=== PATIENT | female | born 1990 | race Caucasian/White ===

== ENCOUNTER 2024-11-04 19:55 | Inpatient (IN) | payer OTHER ==
[2024-11-04] MEDS ORDERED: Ibuprofen 800 MG TAB PO PRN (21:29)
[2024-11-04] MEDS ORDERED: Methylergonovine 0.2 MG/ML VIAL IM PRN (21:29)
[2024-11-04] MEDS ORDERED: Carboprost 250 MCG/ML AMP IM PRN (21:29)
[2024-11-04] MEDS ORDERED: Acetaminophen 500 MG TAB PO PRN (21:29)
[2024-11-04] MEDS ORDERED: Zolpidem Tartrate 5 MG TAB PO PRN (21:29)
[2024-11-04] MEDS ORDERED: hydrALAZINE 20 MG/ML VIAL SLOW IVP PRN (21:29)
[2024-11-04] MEDS ORDERED: Lidocaine 1% (PF) 30 ML VIAL SC PRN (21:29)
[2024-11-04] MEDS ORDERED: HYDROcodone/Acetaminophen 5/325 mg Tablet PO PRN ×2 (21:29)
[2024-11-04] MEDS ORDERED: Diphenoxylate HCl/Atropine Tablet PO PRN ×2 (21:29)
[2024-11-04] MEDS ORDERED: fentaNYL 50 mcg/mL 1 mL Vial SLOW IVP PRN (21:29)
[2024-11-04] MEDS ORDERED: Misoprostol 200 MCG TAB PR PRN (21:29)
[2024-11-04] MEDS ORDERED: Tranexamic Acid 1,000 MG/10 ML VIAL IVP PRN (21:29)
[2024-11-04] MEDS ORDERED: Oxytocin 30 units/NS 500 ML 500 ML IV SCH (21:29)
[2024-11-04 21:34] VITALS: BMI 29.7
[2024-11-04] MEDS: Lactated Ringer's 1,000 ML IV SCH (21:58)
[2024-11-04] MEDS: Misoprostol 100 MCG TAB VAG SCH (22:05)
[2024-11-04 22:34] LABS: Hematocrit 33.5 % (34.9-44.5); Hemoglobin 11.4 g/dL (12.0-15.5); Mean Corpuscular Hemoglobin 28.8 pg (27.0-33.0); Mean Corpuscular Volume 84.6 fL (81.6-98.3); Mean Platelet Volume 11.4 fL (7.4-10.4); Platelet Count 301 10x3/uL (150-450); RBC Distribution Width 15.2 % (11.5-14.5); Red Blood Cell (RBC) Count 3.96 10x6/uL (3.90-5.03); White Blood Cell (WBC) Count 12.9 10x3/uL (3.5-10.5)
[2024-11-04 23:15] LABS: HBsAg Index 0.19 S/CO (0-0.99); Hep B Surf Ag - L&D Non-Reactive S/CO (NonReactive); Syphilis Antibody Nonreactive (Nonreactive); Syphilis Antibody Index 0.06 S/CO (<1.00 Non-Reactive)
[2024-11-05] MEDS: Oxytocin 30 units/NS 500 ML 500 ML IV SCH (06:00)
[2024-11-05] MEDS: fentaNYL/Ropivacaine Epidural 100 ML ONE (07:36)
[2024-11-05] MEDS ORDERED: Promethazine HCl 25 MG/ML VIAL IM PRN (07:41)
[2024-11-05] MEDS ORDERED: Moisturizing Cream (Eucerin) 113 GM JAR TOP PRN (07:41)
[2024-11-05] MEDS ORDERED: Lactated Ringer's 500 ML IV PRN (07:41)
[2024-11-05] MEDS ORDERED: Ondansetron PF 4 MG/2 ML Vial IVP PRN (07:41)
[2024-11-05] MEDS ORDERED: ePHEDrine Sulfate 50 MG/10 ML VIAL SLOW IVP PRN (07:41)
[2024-11-05] MEDS ORDERED: Acetaminophen 325 MG TAB PO PRN (07:41)
[2024-11-05] MEDS ORDERED: Naloxone HCl 0.4 mg/ml Vial IVP PRN ×2 (07:41)
[2024-11-05] MEDS ORDERED: diphenhydrAMINE 50 MG/ML VIAL IVP PRN (07:41)
[2024-11-05] MEDS ORDERED: Communication Order-Pharmacy FS SCH (07:45)
[2024-11-05] MEDS ORDERED: fentaNYL 2 mcg/Ropivacaine 0.2% Epidural 100 ML CADD EPIDURAL SCH (07:45)
[2024-11-05] MEDS: Ondansetron PF 4 MG/2 ML Vial IVP PRN (08:58)
[2024-11-05] MEDS: Promethazine HCl 25 MG/ML VIAL IM PRN (09:59)
[2024-11-05] MEDS ORDERED: hydrALAZINE 20 MG/ML VIAL SLOW IVP PRN (12:21)
[2024-11-05] MEDS ORDERED: Bisacodyl 10 MG SUPP PR PRN (12:21)
[2024-11-05] MEDS ORDERED: traMADol HCl 50 MG TAB PO PRN (12:21)
[2024-11-05] MEDS ORDERED: Preparation H Ointment 28 GM TUBE PR PRN (12:21)
[2024-11-05] MEDS ORDERED: Lanolin Ointment 7 GM TUBE TOP PRN (12:21)
[2024-11-05] MEDS ORDERED: Milk Of Magnesia 30 ML UDCUP PO PRN (12:21)
[2024-11-05] MEDS ORDERED: Benzocaine-Menthol 82.5 ML CAN TOP PRN (12:21)
[2024-11-05] MEDS: Ibuprofen 800 MG TAB PO SCH (17:58)
[2024-11-05] MEDS: Docusate 100 MG CAP PO SCH (22:06)
[2024-11-06] MEDS: Ferrous Sulfate 325 MG TAB PO SCH (02:06)
[2024-11-06] MEDS: Boostrix 0.5 ML (Tdap) VIAL (>/=7 yrs of age) IM ONE (07:32)
[2024-11-06] MEDS ORDERED: Bupivacaine PF 0.5% 30 ML VIAL ONE (09:00)
[2024-11-07 07:38] VITALS: BP 114/59; TEMP 98.2
== END 2024-11-07 13:05 | disposition home or self-care (01) | DRG 807 ==
LOC: CSHLD 19:55 → CSHPP 11-05 15:21
PROVIDERS: ADMIT Obstetrics & Gynecology; ATTEND Obstetrics & Gynecology
PROC: 10E0XZZ Delivery of Products of Conception, External Approach (ICD-10-PCS; principal; 2024-11-05)
PROC: 0UQGXZZ Repair Vagina, External Approach (ICD-10-PCS; 2024-11-05)
DX: O71.4 Obstetric high vaginal laceration alone (principal); Z37.0 Single live birth; Z3A.39 39 weeks gestation of pregnancy; Z98.890 Other specified postprocedural states; Z88.1 Allergy status to other antibiotic agents; Z88.2 Allergy status to sulfonamides
CPT/HCPCS: 36415; 51701; 51702; 85027; 86780; 86850; 86900; 86901; 87340; J0665; J2405; J2550; J2590; J7120